=== PATIENT | female | born 1980 | race Caucasian/White ===

== ENCOUNTER 2017-03-28 18:19 | Emergency (ER) | payer OTHER ==
[2017-03-28 21:01] VITALS: BP 132/85
== END 2017-03-28 21:01 | disposition home or self-care (01) ==
LOC: ED 18:19
DX: S92.514A Nondisplaced fracture of proximal phalanx of right lesser toe(s), initial encounter for closed fracture (principal); W22.8XXA Striking against or struck by other objects, initial encounter; Y93.01 Activity, walking, marching and hiking; Y99.8 Other external cause status; Y92.098 Other place in other non-institutional residence as the place of occurrence of the external cause

== ENCOUNTER 2019-02-25 22:48 | Emergency (ER) | payer OTHER ==
[~2019-02-25] VITALS: Ht 165.1 cm; Wt 73.5 kg
[2019-02-25 22:54] VITALS: Ht 165.1 cm; Wt 73.5 kg
[2019-02-26 00:48] VITALS: BP 142/88
== END 2019-02-26 00:48 | disposition home or self-care (01) ==
LOC: ED 22:48
DX: M54.5 Low back pain (principal); Z98.890 Other specified postprocedural states
CPT/HCPCS: J1885

== ENCOUNTER 2019-08-15 17:45 | Emergency (ER) | payer OTHER ==
[~2019-08-15] VITALS: Ht 157.5 cm; Wt 71.7 kg
[2019-08-15 17:56] VITALS: Ht 157.5 cm; Wt 71.7 kg
[2019-08-15 18:14] LABS: BASOPHIL % 0.1 % (0-2)
[2019-08-15 18:21] LABS: CALCIUM 8.4 mg/dL (8.5-10.1); CARBON DIOXIDE 23.2 mmol/L (21-32); CHLORIDE SERUM 105 mmol/L (98-107); CREATININE SERUM 0.7 mg/dL (0.6-1.0); GFR1 > 60 mL/min; GLUCOSE SERUM 96 mg/dL (74-106); POTASSIUM SERUM 4.3 mmol/L (3.5-5.1); SODIUM SERUM 140 mmol/L (136-145)
[2019-08-15 18:23] LABS: PLATELET COUNT 416 x10^3mcL (130-400); RED CELL DISTRIBUTION WIDTH 19.1 % (11.5-14.5)
[2019-08-15 18:26] LABS: ALKALINE PHOSPHATASE 101 U/L (46-116); ALT/SGPT 16 U/L (14-59); AST/SGOT 11 U/L (15-37); BILIRUBIN TOTAL 0.25 mg/dL (0.20-1.00); TOTAL PROTEIN, SERUM 8.5 g/dL (6.4-8.2)
[2019-08-15 18:40] LABS: rbc morphology (normal/abnorm) ABNORMAL (NORMAL)
[2019-08-15 18:57] VITALS: BP 131/84
== END 2019-08-15 18:57 | disposition home or self-care (01) ==
LOC: ED 17:45
DX: R07.2 Precordial pain (principal); M54.6 Pain in thoracic spine
CPT/HCPCS: 36415

== ENCOUNTER 2019-08-16 16:07 | Emergency (ER) | payer OTHER ==
[~2019-08-16] VITALS: Ht 157.5 cm; Wt 69.9 kg
[2019-08-16 16:29] VITALS: Ht 157.5 cm; Wt 69.9 kg
[2019-08-16 17:25] VITALS: BP 133/97
== END 2019-08-16 17:25 | disposition home or self-care (01) ==
LOC: ED 16:07
DX: R20.2 Paresthesia of skin (principal); R07.89 Other chest pain